=== PATIENT | male | born 1975 | race Caucasian/White ===

== ENCOUNTER 2021-07-15 14:04 | Emergency (ER) | payer OTHER ==
[2021-07-15 14:12] VITALS: BP 135/78; PULSE 100; RESP 20; TEMP 97.2
[2021-07-15] MEDS ORDERED: KETOROLAC 15 MG/ML 1 ML VIAL IVP STA (14:28)
[2021-07-15] MEDS ORDERED: HYDROmorphone 0.5 MG/0.5 ML SYRINGE IVP STA (14:29)
--- NOTE | 2021-07-15 14:37 | ED ---
General Adult HPI - General Chief complaint: Abdominal Pain Stated complaint: Kidney Pain Time Seen by Provider: 07/15/21 14:05 Source: patient, RN notes reviewed, old records reviewed Mode of arrival: ambulatory Limitations: no limitations - History of Present Illness Initial comments: This is a 45-year-old male who presents to the emergency department from [facility]. Patient states he started having sudden onset of right flank pain this morning he went to the hospital he can some medicine and it seemed to go away but he did have blood in his urine is sent down here for CAT scan because her CAT scan she was not working at this time. Patient states the pain stayed away until he arrived here and the pain came back significantly. Patient states he's had no nausea vomiting or diarrhea. Patient states pressing on the flank area does not hurt. Patient denies any dysuria hematuria urinary frequency. Patient denies any previous history of kidney stone. - Related Data Previous Rx's Medication Instructions Recorded Ketorolac [Toradol] 10 mg PO Q6HR #15 tab 07/15/21 Tamsulosin [Flomax] 0.4 mg PO DAILY #10 cap 07/15/21 Allergies Allergy/AdvReac Type Severity Reaction Status Date / Time No Known Allergies Allergy Verified 07/15/21 14:12 Review of Systems ROS Statement: Those systems with pertinent positive or pertinent negative responses have been documented in the HPI. ROS Other: All systems not noted in ROS Statement are negative. Past Medical History Past Medical History: Hypertension History of Any Multi-Drug Resistant Organisms: None Reported Past Surgical History: Orthopedic Surgery Additional Past Surgical History / Comment(s): lt eye ,lt wrist Past Psychological History: No Psychological Hx Reported Smoking Status: Never smoker Past Alcohol Use History: None Reported Past Drug Use History: None Reported General Exam - General Exam Comments Initial Comments: GENERAL: Patient is well-developed and well-nourished. Patient is nontoxic and well- hydrated and is in mild distress. ENT: Neck is soft and supple. No significant lymphadenopathy is noted. Oropharynx is clear. Moist mucous membranes. Neck has full range of motion without eliciting any pain. EYES: The sclera were anicteric and conjunctiva were pink and moist. Extraocular movements were intact and pupils were equal round and reactive to light. Eyelids were unremarkable. PULMONARY: Unlabored respirations. Good breath sounds bilaterally. No audible rales rhonchi or wheezing was noted. CARDIOVASCULAR: There is a regular rate and rhythm without any murmurs gallops or rubs. ABDOMEN: Soft and nontender with normal bowel sounds. SKIN: Skin is clear with no lesions or rashes and otherwise unremarkable. NEUROLOGIC: Patient is alert and oriented x3. Cranial nerves II through XII are grossly intact. Motor and sensory are also intact. Normal speech, volume and content. Symmetrical smile. MUSCULOSKELETAL: Normal extremities with adequate strength and full range of motion. No CVA tenderness LYMPHATICS: No significant lymphadenopathy is noted PSYCHIATRIC: Normal psychiatric evaluation. Limitations: no limitations Course Vital Signs 07/15/21 14:07 Temperature 97.2 F L Pulse Rate 100 Respiratory 20 Rate Blood Pressure 135/78 O2 Sat by Pulse 97 Oximetry Medical Decision Making - Medical Decision Making CT of the abdomen and pelvis shows a right-sided ureteral stone with hydronephrosis. Stone measures about 2 mm. Disposition Clinical Impression: Kidney stone Disposition: HOME SELF-CARE Condition: Good Prescriptions: Tamsulosin [Flomax] 0.4 mg PO DAILY #10 cap Ketorolac [Toradol] 10 mg PO Q6HR #15 tab Is patient prescribed a controlled substance at d/c from ED?: No Referrals: Kenneth Bravo MD [STAFF PHYSICIAN] - 1-2 days Time of Disposition: 14:57
[2021-07-15] MEDS ORDERED: ACET/COD 300 MG/30 MG STARTER PACK 6 TAB BTL PO STA (14:59)
--- NOTE | 2021-07-15 14:59 | CT ---
EXAMINATION TYPE: CT abdomen pelvis wo con DATE OF EXAM: 07/15/2021 COMPARISON: None HISTORY: RT flank pain CT DLP: 1332.4 mGycm Automated exposure control for dose reduction was used. Images obtained from the diaphragm to the floor of the pelvis with no contrast. Lung bases are clear of consolidation. There is no pleural effusion. Heart size is normal. There is n o pericardial effusion. There is some fatty infiltration of the liver. Spleen is intact. There is no pancreatic mass. Gallbla dder appears normal. Stomach is intact. There is no adrenal mass. Right kidney shows perinephric edema. There is mild right-sided proximal pe riureteral edema. There is 3 mm calculus distal right ureter. Bladder distends smoothly. There is a m inimal right-sided hydronephrosis. There are 2 and 3 mm calculi in the lower pole of the left kidney. There is no retroperitoneal adenopathy. Appendix is medial and appears normal. There is no mesenteric edema. There is no ascites or free air. There is no bowel obstruction. There i s no inguinal hernia. The lumbar vertebrae have normal alignment. Disc spaces are fairly normal. Ther e is no compression fracture. The bony pelvis is intact. IMPRESSION: Obstructing small calculus distal right ureter with right-sided hydronephrosis and minimal hydrourete r. Right-sided perinephric and periureteral edema. Normal appendix. Nonobstructing left renal calculi.
== END 2021-07-15 15:23 | disposition home or self-care (01) ==
LOC: EC 14:04
DX: N13.2 Hydronephrosis with renal and ureteral calculous obstruction (principal); I10 Essential (primary) hypertension
CPT/HCPCS: 74176; 99284; 96374; 96375; J1885; J1170